=== PATIENT | male | born 1965 ===

== ENCOUNTER 2016-05-27 14:31 | Emergency (ER) | payer SELFPAY ==
[2016-05-27] MEDS ORDERED: Glucagon Recombinant 1 mg Inj ONE (14:57)
[2016-05-27] MEDS ORDERED: Glucagon Recombinant 1 mg Inj IM STA (15:00)
--- NOTE | 2016-05-27 15:19 | C.PDOC ---
History Of Present Illness 50M BIBA for psych eval. the pt states " I have schizophrenia" but he is unsure why he was brought here today. denies SI or HI. +aud hallucinations. Time Seen by Provider: 05/27/16 14:51 Chief Complaint (Nursing): Psychiatric Evaluation History Per: Patient History/Exam Limitations: no limitations Current Symptoms Are (Timing): Still Present Recent travel outside of the [place]: No Past Medical History Reviewed: Historical Data, Nursing Documentation, Vital Signs Vital Signs: Last Vital Signs Temp 98.6 F 05/27/16 14:45 Pulse 100 H 05/27/16 14:45 Resp 20 05/27/16 14:45 BP 169/110 H 05/27/16 14:45 Pulse Ox 97 05/27/16 16:44 - Medical History PMH: Anxiety, Depression - [facility] Procedures INDIVID PSYCHOTHERAP NEC (02/13/14) NEUROLEPTIC THERAPY (02/13/14) OTHER GROUP THERAPY (02/13/14) Family History: States: Unknown Family Hx - Social History Hx Alcohol Use: Yes (pt states sometimes) Hx Substance Use: No Review Of Systems Except As Marked, All Systems Reviewed And Found Negative. Constitutional: Negative for: Fever, Weakness Cardiovascular: Negative for: Chest Pain Respiratory: Negative for: Cough, Shortness of Breath Gastrointestinal: Negative for: Nausea, Vomiting, Abdominal Pain Genitourinary: Negative for: Dysuria Neurological: Negative for: Weakness, Numbness, Headache Psych: Positive for: Psychosis. Negative for: Suicidal ideation Physical Exam - Physical Exam Appears: Well, Non-toxic, No Acute Distress Skin: Warm, Dry Head: Atraumatic Eye(s): bilateral: PERRL, EOMI Oral Mucosa: Moist Lips: No Swelling Neck: Normal ROM Respiratory: No Decreased Breath Sounds, No Accessory Muscle Use, No Rales, No Rhonchi, No Wheezing Gastrointestinal/Abdominal: Soft, No Tenderness Pulses: Left Radial: Normal, Right Radial: Normal Neurological/Psych: Oriented x3, Other (no focal deficits) Gait: Steady ED Course And Treatment - Laboratory Results Result Diagrams: 05/27/16 16:00 05/27/16 16:00 ECG: Interpreted By Me, Viewed By Me ECG Rhythm: Sinus Rhythm Interpretation Of ECG: Nonspecific T wave abnormality, normal intervals, similar to prior 08/25/14 Rate From EC (BPM) O2 Sat by Pulse Oximetry: 97 (on room air) Pulse Ox Interpretation: Normal Medical Decision Making Medical Decision Makin psych service evaluated the pt and cleared him for discharge. Disposition - Disposition Disposition: HOME/ ROUTINE Disposition Time: 18:08 Condition: STABLE - Clinical Impression Clinical Impression: Schizoaffective disorder - Scribe Statement The provider has reviewed the documentation as recorded by the Arelis Martinez Provider Attestation: All medical record entries made by the Arelis were at my direction and personally dictated by me. I have reviewed the chart and agree that the record accurately reflects my personal performance of the history, physical exam, medical decision making, and the department course for this patient. I have also personally directed, reviewed, and agree with the discharge instructions and disposition.
[2016-05-27 16:06] LABS: BASO # 0.1 K/uL (0.0-0.2); BASO % 0.9 % (0.0-2.0); EOS % 0.3 % (0.0-4.0); HEMATOCRIT 47.9 % (35.0-51.0); LYMPH # 1.6 K/uL (1.0-4.3); LYMPH % 10.8 % (20.0-40.0); MEAN CELL VOLUME 88.2 fL (80.0-94.0); MEAN CORPUSCULAR HEMOGLOBIN 30.2 pg (27.0-31.0); MEAN CORPUSCULAR HGB CONC 34.2 g/dL (33.0-37.0); MEAN PLATELET VOLUME 8.1 fL (7.2-11.7); MONO % 6.7 % (0.0-10.0); NRBC % 0.2 % (0.0-2.0); RED CELL DISTRIBUTION WIDTH 12.9 % (11.5-14.5); WHITE BLOOD COUNT 14.5 K/uL (4.8-10.8)
[2016-05-27 16:17] LABS: CHLORIDE 92 mmol/L (98-107); SODIUM 133 mmol/L (132-148)
[2016-05-27 16:20] LABS: ALCOHOL SERUM < 10 mg/dl (0-10); BILIRUBIN,TOTAL 1.2 mg/dL (0.2-1.3); CARBON DIOXIDE 22 mmol/L (22-30); GFR AFRICAN-AMERICAN > 60
[2016-05-27 16:21] LABS: ALB/GLOB RATIO 1.3 (1.0-2.1); ALKALINE PHOSPHATASE 49 U/L (38-126); ALT/SGPT 29 U/L (21-72); AST/SGOT 59 U/L (17-59); BLOOD UREA NITROGEN 19 mg/dL (9-20); CALCIUM 9.9 mg/dl (8.6-10.4); GLUCOSE,RANDOM 146 mg/dL (75-110); TOTAL PROTEIN 8.7 g/dL (6.3-8.3)
[2016-05-27 17:26] LABS: RBC URINE 4 /hpf (0-3); URINE BACTERIA RARE (<OCC); URINE BILIRUBIN NEGATIVE (NEGATIVE); URINE COLOR Yellow (YELLOW); URINE GLUCOSE (UA) NORMAL (Normal); URINE KETONE 1+ mg/dL (NEGATIVE); URINE LEUKOCYTE ESTERASE NEG Leu/uL (Negative); URINE PROTEIN 2+ mg/dL (NEGATIVE); URINE UROBILINOGEN NORMAL mg/dL (0.2-1.0); WBC URINE 1 /hpf (0-5)
[2016-05-27 17:29] LABS: URINE BLOOD TRACE (NEGATIVE)
[2016-05-27 18:36] VITALS: BP 158/92; PULSE 92; RESP 18; TEMP 98.2; O2SAT 98
--- NOTE | 2016-05-28 12:14 | CARD ---
APPROVED REPORT EKG Measurement Heart [id number] <Conclusion> Normal sinus rhythm T wave abnormality, consider inferior ischemia T wave abnormality, consider anterolateral ischemia Abnormal ECG
== END 2016-05-27 18:36 | disposition home or self-care (01) ==
LOC: C.ER 14:31
DX: F25.9 Schizoaffective disorder, unspecified (principal)
CPT/HCPCS: 80053; 81001; 82948; 85025; 93005; 96372; 99285; G0480; J1610

== ENCOUNTER 2016-11-10 03:49 | Inpatient (IN) | payer OTHER ==
[2016-11-10 04:14] LABS: BASO # 0.1 K/uL (0.0-0.2); BASO % 0.8 % (0.0-2.0); EOS # 0.1 K/uL (0.0-0.7); EOS % 0.5 % (0.0-4.0); HEMATOCRIT 47.2 % (35.0-51.0); LYMPH # 1.6 K/uL (1.0-4.3); LYMPH % 15.3 % (20.0-40.0); MEAN CELL VOLUME 89.1 fL (80.0-94.0); MEAN CORPUSCULAR HEMOGLOBIN 31.5 pg (27.0-31.0); MEAN CORPUSCULAR HGB CONC 35.4 g/dL (33.0-37.0); MEAN PLATELET VOLUME 7.7 fL (7.2-11.7); MONO # 0.8 K/uL (0.0-0.8); MONO % 7.3 % (0.0-10.0); RED CELL DISTRIBUTION WIDTH 12.7 % (11.5-14.5); WHITE BLOOD COUNT 10.6 K/uL (4.8-10.8)
[2016-11-10 04:29] LABS: ALB/GLOB RATIO 1.2 (1.0-2.1); ALCOHOL SERUM < 10 mg/dl (0-10); ALKALINE PHOSPHATASE 63 U/L (38-126); ALT/SGPT 36 U/L (21-72); AST/SGOT 27 U/L (17-59); BLOOD UREA NITROGEN 19 mg/dL (9-20); CALCIUM 10.1 mg/dl (8.6-10.4); CARBON DIOXIDE 25 mmol/L (22-30); CHLORIDE 100 mmol/L (98-107); GFR AFRICAN-AMERICAN > 60; GLUCOSE,RANDOM 118 mg/dL (75-110); POTASSIUM 4.1 mmol/L (3.6-5.2); SODIUM 141 mmol/L (132-148); TOTAL PROTEIN 8.3 g/dL (6.3-8.3)
--- NOTE | 2016-11-10 04:35 | C.PDOC ---
History Of Present Illness 51 y/o male, hx of schizoaffective disorder, was brought in by EMS after being found wandering the streets naked and dazed [employer]. Patient is slow when responding to questions, but reports feeling tensed and stressed. Hx limited due to clinical condition. Patient has multiple prior visits. Denies homicidal ideation, suicidal ideation, or somatic complaints. Time Seen by Provider: 11/10/16 03:53 Chief Complaint (Nursing): Psychiatric Evaluation History Per: Patient History/Exam Limitations: clinical condition Onset/Duration Of Symptoms: Hrs Current Symptoms Are (Timing): Still Present Suicide/Self Injury Attempted (Context): None Severity: Mild Associated Symptoms: denies: Suicidal Thoughts, Suicidal Plan Recent travel outside of the [place]: No Additional History Per: Patient Past Medical History Reviewed: Historical Data, Nursing Documentation, Vital Signs Vital Signs: Last Vital Signs Temp 97.9 F 11/10/16 03:52 Pulse 74 11/10/16 03:52 Resp 20 11/10/16 03:52 BP 152/75 H 11/10/16 03:52 Pulse Ox 99 11/10/16 05:54 - Medical History PMH: Anxiety, Depression, Schizophrenia Denies: Diabetes, Hepatitis, HIV, HTN, Chronic Kidney Disease, Seizures, Sexually Transmitted Disease - [facility] Procedures INDIVID PSYCHOTHERAP NEC (02/13/14) NEUROLEPTIC THERAPY (02/13/14) OTHER GROUP THERAPY (02/13/14) Family History: States: Unknown Family Hx - Social History Hx Alcohol Use: Yes (pt states sometimes) Hx Substance Use: No - Immunization History Hx Tetanus Toxoid Vaccination: No Hx Influenza Vaccination: No Review Of Systems Review Of Systems: ROS cannot be obtained secondary to pt's inabilty to answer questions. Physical Exam - Physical Exam Appears: Non-toxic, No Acute Distress, Other (Bizzare affect. No trauma.) Skin: Warm, Dry, No Other (laceration or abrasions noted.) Head: Normacephalic Eye(s): bilateral: Normal Inspection, PERRL, EOMI Oral Mucosa: Moist Cardiovascular: Rhythm Regular Respiratory: Normal Breath Sounds, No Rales, No Rhonchi, No Wheezing Gastrointestinal/Abdominal: Normal Exam, Bowel Sounds, Soft, No Tenderness Extremity: Other (Dry blood on right fingers) Neurological/Psych: Other (Awake and alert) ED Course And Treatment - Laboratory Results Result Diagrams: 11/10/16 04:11 11/10/16 04:11 O2 Sat by Pulse Oximetry: 99 (RA) Pulse Ox Interpretation: Normal Progress Note: Plans: Blood work, UA, UDS ordered and reviewed. 5:54am- Patient medically cleared. Pending crisis. Disposition - Disposition Disposition Time: 07:00 Condition: STABLE Forms: [facility] (Brazilian) - Clinical Impression Clinical Impression: Schizoaffective disorder - Scribe Statement The provider has reviewed the documentation as recorded by the Scribe Maico blount All medical record entries made by the Scribe were at my direction and personally dictated by me. I have reviewed the chart and agree that the record accurately reflects my personal performance of the history, physical exam, medical decision making, and the department course for this patient. I have also personally directed, reviewed, and agree with the discharge instructions and disposition. Physician Patient Turnover Patient Signed Over To: Grayson Domínguez Handoff Comments: pending dispo by crisis/psych
[2016-11-10 05:38] LABS: RBC URINE 10 /hpf (0-3); URINE BILIRUBIN NEGATIVE (NEGATIVE); URINE BLOOD 1+ (NEGATIVE); URINE COLOR Amber (YELLOW); URINE GLUCOSE (UA) NORMAL (Normal); URINE KETONE TRACE mg/dL (NEGATIVE); URINE LEUKOCYTE ESTERASE NEG Leu/uL (Negative); URINE PROTEIN 1+ mg/dL (NEGATIVE); URINE UROBILINOGEN NORMAL mg/dL (0.2-1.0); WBC URINE 4 /hpf (0-5)
--- NOTE | 2016-11-10 08:24 | PCM.BM ---
<Eloise Mi - Last Filed: 11/10/16 11:34> Treatment Plan Problems - Problems identified on initial assessmt psychosis Date Initiated: 11/10/16 Time Initiated: 08:14 Assessment reference: NA Status: Active Treatment assets and liabiliti Patient Assests: ADL independent Patient Liabilities: other (med non compliance) - Milieu Protocol Maintain good personal hygiene: daily Encourage regular showers Maintain personal safety: every shift Educate patient to report safety concerns to staff, every shift Monitor environment for contraband/sharps Medication safety: Monitor for expected outcome, potential side effects: every shift, Assess barriers to learning: every shift, Assess readiness for medication education: every shift <Najma Vigil - Last Filed: 11/12/16 11:15> - Diagnosis (1) Schizoaffective disorder Status: Acute Interventions: 11/12/16 11:15 * Assess/adjust medications daily and /or as needed * See patient on an individual basis 7x/week to assess status of hallucinations * Discuss risks, benefits, side effects and alternatives of medications * <Lydia Alexandra - Last Filed: 11/14/16 11:26> Family Contact Family involvement: Family/SO is involved Family contact: Patient agrees to contact Family contact name: Joseph AlanizRaprnuvjjej-atafahn-au-law - Goals for Treatment Patient goals for treatment: "I want to keeop taking my medications." Discharge/Continuing Care - Education Needs Education Needs: Patient Medication, Patient Coping Skills - Discharge Discharge Criteria: Tolerates medication w/o severe side effects, Reduction of target symptoms Discharge to:: Home, With Family - Treatment Team Participation Discussed with Family/SO: Yes Was Patient/Family/SO present at Treatment Team Meeting: Yes
--- NOTE | 2016-11-11 00:03 | PCM.PSYCH ---
Initial Psychiatric Evaluation - Initial Psychiatric Evaluation Legal Status: Capacity Chief Complaint (in patient's own words): UNABLE TO OBTAIN Patient's Reaction to Hospitalization: UNABLE TO OBTAIN History of Present Illness and Precipitating Events: N.B. MUCH OF THE INFORMATION COMES FROM THE MEDICAL RECORDD PT IS 51 YEAR OLD MALE HELIVES WITH HIS BROTHER=IN-LAW.PT WAS BROUGHT INTO ED BY EMS. HE WAS FOUND NAKED WANDERING AROUND. HE WAS APPARENTLY CONFUSED. PT WAS VERY SLOW TO RESPOND TO QUESTIONS. HE DID NOT WANT TO HURT HIMSELF OR OTHERS.HE REFUSED TO SIGN CONSENTS . HOWEVER, NURSE ESPERANZA COAXED HIM TO SIGN A RELEASE SO STAFF COULD COMMUNICATE WITH [id number]. PATIENT ACCOUNT ANALYST CALLED ANF LEFT A MESSAGE. PT PER BHAVNA TAKES AT LEAST RISPERDAL.PT APPEARS PARANOID , RESPONDING TO INTERNAL STIMULI, PREOCCUPIED STARING INTO SPACE. HE TOOK OFF HIS GOWN IN THE HALLWAY AND HAD TO BE ESCORTED TO HIS ROOM. PT WAS AT THE DOOR REPEATED ASKING TO RING THE CASSIDY SO HE COULD LEAVE Current Medications: Active Medications Generic Name Dose Route Start Last Admin Trade Name Freq PRN Reason Stop Dose Admin Acetaminophen 650 mg 11/10/16 07:59 Tylenol 325mg Tab PO Q4H PRN Pain, moderate (4-7) Benztropine Mesylate 0.5 mg 11/10/16 10:00 11/10/16 17:45 Cogentin PO 0.5 mg BID CHERELLE Administration Lorazepam 1 mg 11/10/16 14:24 11/10/16 17:45 Ativan PO 11/13/16 14:25 1 mg TID PRN Administration Anxiety Risperidone 3 mg 11/10/16 10:00 11/10/16 17:45 Risperdal Tab PO 3 mg BID CHERELLE Administration Sertraline HCl 100 mg 11/10/16 10:00 11/10/16 10:34 Zoloft PO 100 mg DAILY CHERELLE Administration Trazodone HCl 50 mg 11/10/16 22:00 Desyrel PO HS PRN Insomnia Past Psychiatric History - Past Psychiatric History Prior Professional Help: UNABLE TO OBTAIN Pertinent Medical Hx (Current Medical&Sleep Prob, Allergies): Allergies Allergy/AdvReac Type Severity Reaction Status Date / Time Penicillins Allergy Verified 11/10/16 03:52 Risperidone [Risperdal M-TAB] 1 mg PO DAILY #30 odt 03/01/14 Risperidone [Risperdal M-TAB] 2 mg PO HS #30 odt 03/01/14 Review of Systems - Review of Systems Systems not reviewed;Unavailable: Uncooperative Review of Systems: REVIEW OF ALL SYPTOMS IS NOT POSSIBLE DUE TO PT'S CONDITION - Psychiatric Psychiatric: Behavioral Changes, Confusion Mental Status Examination - Personal Presentation Personal Presentation: Looks older than stated age - Affect Affect: Flat - Motor Activity Motor Activity: Psychomotor Retardation - Reliability in Providing Information Reliability in Providing Information: Poor, due to alteration in thoughts - Speech Speech: Disorganized - Mood Mood: Neutral - Formal Thought Process Additional comments: UNABLE TO OBTAIN - Hallucinations/Delusions Hallucinations: Other Delusions: Other Additional comments: UNABLE TO OBTAIN - Obsessions/Compulsions Description of Obsession/Compulsion: UNABLE TO ASCERTAIN - Cognitive Functions Orientation: Person, Place Attention/Concentration: Easily distracted Judgement: Imparied, as evidence by: Other Memory: Recent impaired, as evidenced by: Other, Remote intact, as evidenced by : Other - Risk Risk: Other - Strength & Assets Inventory Strength & Assets Inventory: Family support - Limitations Limitations: Decreased memory, recent DSM 5 DX - DSM 5 DSM 5 Diagnosis: SCHIZOAFFECTIVE DISORDER: RISPERDAL [facility], MILIEU AND RECRERATIONAL THERAPYU - Recommended/Plan of Treatment Treatment Recommendations and Plan of Treatment: SEE ABOVE Projected ELOS: 10 DAYS Prognosis: FAIR WITH TREATMENT Discharge Plan and Discharge Criteria: INCREASED AWARENESS OF SURROUNDINGS - Smoking Cessation Smoking Cessation Initiated: No
--- NOTE | 2016-11-11 10:38 | PCM.PYCHPN ---
Psychiatric Progress Note - Psychiatric Progress Note Patient seen today, length of contact: 16 min Patient Chief Complaint: I ma hearing voices Problems Identified/Issues Discussed: Patient seen and evaluated, chart reviewed and discussed with the nurse. As per the staff pt remained disorganized and internally preoccupied. He remained isolated and confined to his room. He appeared suspicious, paranoid and psychotic. He remained superficially cooperative and guarded about the details. However he remained calm and cooperative. He is taking medication and denies any side effects. He needs more time for stabilization. Supportive therapy and psychoeducation were given. Medication Change: Yes Medical Record Reviewed: Yes Mental Status Examination - Cognitive Function Orientation: Person, Place Memory: Intact Attention: Poor Concentration: Poor Association: Loose Fund of Knowledge: Poor - Mood Mood: Anxious - Affect Affect: Flat - Speech Speech: Soft - Formal Thought Process Formal Thought Process: Hallucinations, Delusions, Paranoia, Loosening of associations - Suicidal Ideation Suicidal Ideation: No - Homicidal Ideation Homicidal Ideation: No Goal/Treatment Plan - Goal/Treatment Plan Need for Continued Stay: Discharge may exacerbated symptoms, Severe functional impairment Progress Toward Problem(s) and Goals/Treatment Plan: Schizoaffective disorder bipolar type CBT Psychoeducation Supportive therapy, group therapy, individual therapy Reduce Risperdal 2 mg PO BID Zoloft 100 mg PO Q Daily Trazodone 50 mg by mouth daily at bedtime - Smoking Cessation Smoking Cessation Initiated: No
--- NOTE | 2016-11-12 11:16 | PCM.PYCHPN ---
Psychiatric Progress Note - Psychiatric Progress Note Patient seen today, length of contact: 16 min Patient Chief Complaint: I am feeling patrice.' Problems Identified/Issues Discussed: Patient seen and evaluated, chart reviewed and discussed with the nurse. Patient appeared very disorganized and internally preoccupied. He remained appeared suspicious, paranoid and psychotic. He remained superficially cooperative and guarded about the details. However he remained calm and cooperative and started taking medication and denies any side effects. He needs more time for stabilization. Supportive therapy and psychoeducation were given. Medication Change: Yes (increase Risperdal) Medical Record Reviewed: Yes Mental Status Examination - Cognitive Function Orientation: Person, Place, Situation, Time Memory: Intact Attention: Poor Concentration: Poor Association: Loose Fund of Knowledge: Poor - Mood Mood: Depressed, Anxious - Affect Affect: Constricted - Speech Speech: Soft - Formal Thought Process Formal Thought Process: Hallucinations, Delusions, Paranoia, Loosening of associations - Suicidal Ideation Suicidal Ideation: No - Homicidal Ideation Homicidal Ideation: No Goal/Treatment Plan - Goal/Treatment Plan Need for Continued Stay: Discharge may exacerbated symptoms, Severe functional impairment Progress Toward Problem(s) and Goals/Treatment Plan: Schizoaffective disorder bipolar type CBT Psychoeducation Supportive therapy, group therapy, individual therapy Risperdal 2 mg PO daily Increase Risperdal 3 mg PO HS Zoloft 100 mg PO Q Daily Trazodone 50 mg by mouth daily at bedtime - Smoking Cessation Smoking Cessation Initiated: No
--- NOTE | 2016-11-13 10:15 | PCM.PYCHPN ---
Psychiatric Progress Note - Psychiatric Progress Note Patient seen today, length of contact: 16 min Patient Chief Complaint: I am hearing voices Problems Identified/Issues Discussed: The patient was seen, chart reviewed, case discussed with staff. pt remained disorganized, disheveled and internally preoccupied. He si still isolated and withdrawn. He appears delusional, psychotic and paranoid. The patient is compliant with medications and reports no side effects. Symptoms are improving but patient needs more time to stabilize. After care discussed, support and psychoeducation given. Medication Change: Yes (increase Risperdal) Medical Record Reviewed: Yes Mental Status Examination - Cognitive Function Orientation: Person, Place, Situation, Time Memory: Intact Attention: WNL Concentration: Poor Association: Loose Fund of Knowledge: Poor - Mood Mood: Depressed, Anxious - Affect Affect: Constricted - Speech Speech: Soft - Formal Thought Process Formal Thought Process: Hallucinations, Delusions, Paranoia, Loosening of associations - Suicidal Ideation Suicidal Ideation: No - Homicidal Ideation Homicidal Ideation: No Goal/Treatment Plan - Goal/Treatment Plan Need for Continued Stay: Discharge may exacerbated symptoms, Severe functional impairment Progress Toward Problem(s) and Goals/Treatment Plan: Schizoaffective disorder bipolar type CBT Psychoeducation Supportive therapy, group therapy, individual therapy Risperdal 2 mg PO daily Risperdal 3 mg PO HS Zoloft 100 mg PO Q Daily Trazodone 50 mg by mouth daily at bedtime - Smoking Cessation Smoking Cessation Initiated: No
--- NOTE | 2016-11-14 15:01 | PCM.PYCHPN ---
Psychiatric Progress Note - Psychiatric Progress Note Patient seen today, length of contact: 16 min Patient Chief Complaint: "I'm feeling better" Problems Identified/Issues Discussed: The patient was seen, chart reviewed, case discussed with staff. The patient is compliant with medications and reports no side effects. Patient continues to appear disheveled and disorganized, and is slow to respond to questions. Patient states he is feeling better and slept well last night. He reports feeling anxious at present. Denies hopelessness or helplessness. He states that he has racing thoughts and hears voices that are cursing at him. Denies visual hallucinations. States that he sometimes feels like he is being watched. He does not feel like he is being followed. Denies suicidal or homicidal ideation. Symptoms are improving but patient needs more time to stabilize. After care discussed, support and psychoeducation given. Medication Change: No Medical Record Reviewed: Yes Mental Status Examination - Cognitive Function Orientation: Person, Place, Situation, Time Memory: Intact Attention: Poor Concentration: Poor Association: Loose Fund of Knowledge: Poor - Mood Mood: Depressed, Anxious - Affect Affect: Constricted - Speech Speech: Soft - Formal Thought Process Formal Thought Process: Hallucinations, Delusions, Paranoia, Loosening of associations - Suicidal Ideation Suicidal Ideation: No - Homicidal Ideation Homicidal Ideation: No Goal/Treatment Plan - Goal/Treatment Plan Need for Continued Stay: Discharge may exacerbated symptoms, Severe functional impairment Progress Toward Problem(s) and Goals/Treatment Plan: Schizoaffective disorder bipolar type CBT Psychoeducation Supportive therapy, group therapy, individual therapy Risperdal 2 mg PO daily Risperdal 3 mg PO HS Zoloft 100 mg PO Q Daily Trazodone 50 mg by mouth daily at bedtime - Smoking Cessation Smoking Cessation Initiated: No
--- NOTE | 2016-11-15 11:06 | PCM.PYCHPN ---
Psychiatric Progress Note - Psychiatric Progress Note Patient seen today, length of contact: 17 min Patient Chief Complaint: "I'm still hearing voices" Problems Identified/Issues Discussed: The pt is seen, chart reviewed, case discussed with staff. Support given, CBT and MS used briefly No new symptoms reported, improving slowly and needs more time Still very isolated and symptomatic, though. Not ready for d/c No SEs from medications, risks discussed. After care discussed Medication Change: No Medical Record Reviewed: Yes Mental Status Examination - Cognitive Function Orientation: Person, Place, Situation, Time Memory: Intact Attention: Poor Concentration: Poor Association: Loose Fund of Knowledge: Poor - Mood Mood: Depressed, Anxious - Affect Affect: Blunted - Speech Speech: Soft - Formal Thought Process Formal Thought Process: Hallucinations, Delusions, Paranoia - Suicidal Ideation Suicidal Ideation: No - Homicidal Ideation Homicidal Ideation: No Goal/Treatment Plan - Goal/Treatment Plan Need for Continued Stay: Discharge may exacerbated symptoms, Severe functional impairment Progress Toward Problem(s) and Goals/Treatment Plan: Continue medications Support and psychoeducation daily Attend groups and activities daily After care planning by EMELINA Estimated Date of D/C: 11/21/16
--- NOTE | 2016-11-17 08:49 | PCM.PYCHPN ---
Psychiatric Progress Note - Psychiatric Progress Note Patient seen today, length of contact: 16 min Patient Chief Complaint: " Problems Identified/Issues Discussed: The pt is seen, chart reviewed, case discussed with staff. The pt is compliant with medications and reports no side-effects. Symptoms are improving but needs more time to stabilize. After care discussed, support and psychoeducation given. No change since yesterday; isolated, sleeping very long hours, flat affect... He talks a bit more with others staff reported. Medication Change: No Medical Record Reviewed: Yes Mental Status Examination - Cognitive Function Orientation: Person, Place, Situation, Time Memory: Intact Attention: WNL Concentration: Poor Association: Loose Fund of Knowledge: Poor - Mood Mood: Depressed, Anxious - Affect Affect: Constricted - Speech Speech: Soft - Formal Thought Process Formal Thought Process: Hallucinations, Delusions, Paranoia, Loosening of associations - Suicidal Ideation Suicidal Ideation: No - Homicidal Ideation Homicidal Ideation: No Goal/Treatment Plan - Goal/Treatment Plan Need for Continued Stay: Discharge may exacerbated symptoms, Severe functional impairment Progress Toward Problem(s) and Goals/Treatment Plan: Continue medications but consider ECT or Clozapine Support and psychoeducation daily Attend groups and activities daily After care planning by EMELINA
--- NOTE | 2016-11-17 09:55 | PCM.PYCHPN ---
Psychiatric Progress Note - Psychiatric Progress Note Patient seen today, length of contact: 16 min Patient Chief Complaint: I am hearing voices Problems Identified/Issues Discussed: The patient was seen, chart reviewed, case discussed with staff. pt remained disorganized, disheveled and internally preoccupied. He si still isolated and withdrawn. He appears delusional, psychotic and paranoid. The patient is compliant with medications and reports no side effects. Symptoms are improving but patient needs more time to stabilize. After care discussed, support and psychoeducation given. Medication Change: No Medical Record Reviewed: Yes Mental Status Examination - Cognitive Function Orientation: Person, Place, Situation, Time Memory: Intact Attention: WNL Concentration: Poor Association: Loose Fund of Knowledge: Poor - Mood Mood: Depressed, Anxious - Affect Affect: Constricted - Speech Speech: Soft - Formal Thought Process Formal Thought Process: Hallucinations, Delusions, Paranoia, Loosening of associations - Suicidal Ideation Suicidal Ideation: No - Homicidal Ideation Homicidal Ideation: No Goal/Treatment Plan - Goal/Treatment Plan Need for Continued Stay: Discharge may exacerbated symptoms, Severe functional impairment Progress Toward Problem(s) and Goals/Treatment Plan: Schizoaffective disorder bipolar type CBT Psychoeducation Supportive therapy, group therapy, individual therapy Risperdal 2 mg PO daily Risperdal 3 mg PO HS Zoloft 100 mg PO Q Daily Trazodone 50 mg by mouth daily at bedtime
--- NOTE | 2016-11-18 10:03 | PCM.PYCHPN ---
Psychiatric Progress Note - Psychiatric Progress Note Patient seen today, length of contact: 16 min Patient Chief Complaint: I am hearing voices Problems Identified/Issues Discussed: The patient was seen, chart reviewed, case discussed with staff. As per the staff, pt stepped out of his room first time yesterday. However he still appears disorganized, disheveled and internally preoccupied. He remained isolated and withdrawn. He appears less delusional, and less paranoid. The patient is compliant with medications and reports no side effects. Symptoms are improving but patient needs more time to stabilize. After care discussed, support and psychoeducation given. Medication Change: Yes (Increase zoloft) Medical Record Reviewed: Yes Mental Status Examination - Cognitive Function Orientation: Person, Place, Situation, Time Memory: Intact Attention: WNL Concentration: Poor Association: Loose Fund of Knowledge: Poor - Mood Mood: Depressed, Anxious - Affect Affect: Constricted - Speech Speech: Soft - Formal Thought Process Formal Thought Process: Hallucinations, Delusions, Paranoia, Loosening of associations - Suicidal Ideation Suicidal Ideation: No - Homicidal Ideation Homicidal Ideation: No Goal/Treatment Plan - Goal/Treatment Plan Need for Continued Stay: Discharge may exacerbated symptoms, Severe functional impairment Progress Toward Problem(s) and Goals/Treatment Plan: Schizoaffective disorder bipolar type CBT Psychoeducation Supportive therapy, group therapy, individual therapy Risperdal 2 mg PO daily Risperdal 3 mg PO HS Zoloft 150 mg PO Q Daily Trazodone 50 mg by mouth daily at bedtime Estimated Date of D/C: 11/21/16 - Smoking Cessation Smoking Cessation Initiated: No
--- NOTE | 2016-11-19 11:21 | PCM.PYCHPN ---
Psychiatric Progress Note - Psychiatric Progress Note Patient seen today, length of contact: 16 min Patient Chief Complaint: I am hearing voices Problems Identified/Issues Discussed: The patient was seen, chart reviewed, case discussed with staff. As per the staff, pt appears more organized, and less internally preoccupied. He appears less delusional, and less paranoid but he remained isolated and withdrawn. The patient is compliant with medications and reports no side effects. Symptoms are improving but patient needs more time to stabilize. After care discussed, support and psychoeducation given. Medication Change: Yes (Increase zoloft) Medical Record Reviewed: Yes Mental Status Examination - Cognitive Function Orientation: Person, Place, Situation, Time Memory: Intact Attention: WNL Concentration: Poor Association: WNL Fund of Knowledge: Poor - Mood Mood: Depressed, Anxious - Affect Affect: Constricted - Speech Speech: Soft - Formal Thought Process Formal Thought Process: Hallucinations, Delusions, Loosening of associations - Suicidal Ideation Suicidal Ideation: No - Homicidal Ideation Homicidal Ideation: No Goal/Treatment Plan - Goal/Treatment Plan Need for Continued Stay: Discharge may exacerbated symptoms, Severe functional impairment Progress Toward Problem(s) and Goals/Treatment Plan: Schizoaffective disorder bipolar type CBT Psychoeducation Supportive therapy, group therapy, individual therapy Risperdal 2 mg PO daily Risperdal 3 mg PO HS Zoloft 150 mg PO Q Daily Trazodone 50 mg by mouth daily at bedtime Estimated Date of D/C: 11/21/16
--- NOTE | 2016-11-20 09:57 | PCM.PYCHPN ---
Psychiatric Progress Note - Psychiatric Progress Note Patient seen today, length of contact: 16 min Patient Chief Complaint: "Medications have been working." Problems Identified/Issues Discussed: Pt. was seen, chart reviewed, case discussed with staff. Pt. states that the medications have been somewhat helping. Pt. reports he is still having the same auditory hallucinations. Pt. denies suicidal and homicidal ideation. Pt. still appears disorganized and internally preoccupied. As per staff, the pt. has been walking around more often and being more active. The pt. is compliant with medications and reports no side effects. Symptoms are improving, but patient needs more time to stabilize. After care discussed, support and psychoeducation given. Pt. states he will be going home after discharge. Medication Change: Yes (Increase zoloft) Medical Record Reviewed: Yes Mental Status Examination - Cognitive Function Orientation: Person, Place, Situation, Time Memory: Intact Attention: WNL Concentration: Poor Association: Loose Fund of Knowledge: Poor - Mood Mood: Depressed, Anxious - Affect Affect: Constricted - Speech Speech: Soft - Formal Thought Process Formal Thought Process: Hallucinations, Delusions, Paranoia, Loosening of associations - Suicidal Ideation Suicidal Ideation: No - Homicidal Ideation Homicidal Ideation: No Goal/Treatment Plan - Goal/Treatment Plan Need for Continued Stay: Discharge may exacerbated symptoms, Severe functional impairment Progress Toward Problem(s) and Goals/Treatment Plan: Schizoaffective disorder bipolar type CBT Psychoeducation Supportive therapy, group therapy, individual therapy Risperdal 2 mg PO daily Risperdal 3 mg PO HS Zoloft 150 mg PO Q Daily Trazodone 50 mg by mouth daily at bedtime Estimated Date of D/C: 11/21/16
--- NOTE | 2016-11-21 09:46 | PCM.BM ---
<AdalbertoLydia Sargent - Last Filed: 11/21/16 09:46> Treatment Plan Problems - Problems identified on initial assessmt psychosis Date Initiated: 11/10/16 Time Initiated: 08:14 Assessment reference: NA Status: Active Treatment assets and liabiliti Patient Assests: ADL independent Patient Liabilities: other (med non compliance) - Milieu Protocol Maintain good personal hygiene: daily Encourage regular showers Maintain personal safety: every shift Educate patient to report safety concerns to staff, every shift Monitor environment for contraband/sharps Medication safety: Monitor for expected outcome, potential side effects: every shift, Assess barriers to learning: every shift, Assess readiness for medication education: every shift Milieu Narrative: Schizoaffective disorder bipolar type CBT Psychoeducation Supportive therapy, group therapy, individual therapy Risperdal 2 mg PO daily Risperdal 3 mg PO HS Zoloft 150 mg PO Q Daily Trazodone 50 mg by mouth daily at bedtime Family Contact Family involvement: Family/SO is involved Family contact: Patient agrees to contact Family contact name: Joseph AlanizLauqvwbnxdb-slzelud-ag-law - Goals for Treatment Patient goals for treatment: "I want to keeop taking my medications." Patient's family/SO goals for treatment: To have pt involved in outpatient treatment and take his medication. Discharge/Continuing Care - Education Needs Education Needs: Patient Medication, Patient Coping Skills - Discharge Discharge Criteria: Tolerates medication w/o severe side effects, Reduction of target symptoms Discharge to:: Home, With Family - Treatment Team Participation Patient/Family/SO Statement: Schizoaffective disorder bipolar type CBT Psychoeducation Supportive therapy, group therapy, individual therapy Risperdal 2 mg PO daily Risperdal 3 mg PO HS Zoloft 150 mg PO Q Daily Trazodone 50 mg by mouth daily at bedtime Discussed with Family/SO: Yes Was Patient/Family/SO present at Treatment Team Meeting: Yes Treatment Plan Review Patient participation: Yes Family/SO/Caregiver participation: Yes ("I agree with Eusebio going to partial care program.") - Problem psychosis Time Initiated: 08:14 <Najma Vigil - Last Filed: 11/21/16 10:56> - Diagnosis (1) Schizoaffective disorder Status: Acute Interventions: 11/21/16 10:56 * Assess/adjust medications daily and /or as needed * See patient on an individual basis 7x/week to assess status of hallucinations * Discuss risks, benefits, side effects and alternatives of medications *
--- NOTE | 2016-11-21 13:54 | PCM.PYCHPN ---
Psychiatric Progress Note - Psychiatric Progress Note Patient seen today, length of contact: 16 min Patient Chief Complaint: "I feel better than yesterday." Problems Identified/Issues Discussed: Pt. was seen, chart reviewed, case discussed with staff. Pt. reports he slept well through the night and the medications are helping him. However, pt. reports he is still having the same auditory hallucinations. Pt. denies suicidal and homicidal ideation. Pt. appears less disorganized and internally preoccupied, but reports to having racing thoughts "here and there." As per staff, the pt. has been eating more and participating in group activities. The pt. is compliant with medications and reports no side effects. Symptoms are improving, but patient needs more time to stabilize. After care discussed, support and psychoeducation given. Pt. states he will be going home after discharge. Medication Change: Yes (Increase zoloft) Medical Record Reviewed: Yes Mental Status Examination - Cognitive Function Orientation: Person, Place, Situation, Time Memory: Intact Attention: WNL Concentration: Poor Association: Loose Fund of Knowledge: Poor - Mood Mood: Depressed, Anxious - Affect Affect: Constricted - Speech Speech: Soft - Formal Thought Process Formal Thought Process: Hallucinations, Loosening of associations - Suicidal Ideation Suicidal Ideation: No - Homicidal Ideation Homicidal Ideation: No Goal/Treatment Plan - Goal/Treatment Plan Need for Continued Stay: Discharge may exacerbated symptoms, Severe functional impairment Progress Toward Problem(s) and Goals/Treatment Plan: Schizoaffective disorder bipolar type CBT Psychoeducation Supportive therapy, group therapy, individual therapy Risperdal 2 mg PO daily Risperdal 3 mg PO HS Zoloft 150 mg PO Q Daily Trazodone 50 mg by mouth daily at bedtime Estimated Date of D/C: 11/24/16
[2016-11-22 07:06] VITALS: O2SAT 97
--- NOTE | 2016-11-22 11:16 | PCM.PYCHPN ---
Psychiatric Progress Note - Psychiatric Progress Note Patient seen today, length of contact: 16 min Patient Chief Complaint: "I feel better than yesterday." Problems Identified/Issues Discussed: Pt. was seen, chart reviewed, case discussed with staff. Pt. appears more organized and less internally preoccupied. He reports improvement in the voices and denies suicidal and homicidal ideation. As per staff, the pt. has been eating more and participating in group activities. The pt. is compliant with medications and reports no side effects. Symptoms are improving, but patient needs more time to stabilize. After care discussed, support and psychoeducation given. Medication Change: Yes (Increase zoloft) Medical Record Reviewed: Yes Mental Status Examination - Cognitive Function Orientation: Person, Place, Situation, Time Memory: Intact Attention: WNL Concentration: WNL Association: WNL Fund of Knowledge: Poor - Mood Mood: Anxious - Affect Affect: Constricted - Speech Speech: Soft - Formal Thought Process Formal Thought Process: No Impairment - Suicidal Ideation Suicidal Ideation: No - Homicidal Ideation Homicidal Ideation: No Goal/Treatment Plan - Goal/Treatment Plan Need for Continued Stay: Discharge may exacerbated symptoms, Severe functional impairment Progress Toward Problem(s) and Goals/Treatment Plan: Schizoaffective disorder bipolar type CBT Psychoeducation Supportive therapy, group therapy, individual therapy Risperdal 2 mg PO daily Risperdal 4 mg PO HS Zoloft 200 mg PO Q Daily Trazodone 50 mg by mouth daily at bedtime Estimated Date of D/C: 11/24/16 - Smoking Cessation Smoking Cessation Initiated: No
--- NOTE | 2016-11-23 13:48 | PCM.PYCHPN ---
Psychiatric Progress Note - Psychiatric Progress Note Patient seen today, length of contact: 16 min Patient Chief Complaint: "I am feeling much better." Problems Identified/Issues Discussed: Pt. was seen, chart reviewed, case discussed with staff. Pt. appears more organized than before and denies any voices. He denies suicidal and homicidal ideation. The pt. is compliant with medications and reports no side effects. Symptoms are improving, but patient needs more time to stabilize. After care discussed, support and psychoeducation given. Medication Change: Yes (Increase zoloft) Medical Record Reviewed: Yes Mental Status Examination - Cognitive Function Orientation: Person, Place, Situation, Time Memory: Intact Attention: WNL Concentration: WNL Association: WNL Fund of Knowledge: WNL - Mood Mood: Anxious - Affect Affect: Constricted - Speech Speech: Soft - Formal Thought Process Formal Thought Process: No Impairment - Suicidal Ideation Suicidal Ideation: No - Homicidal Ideation Homicidal Ideation: No Goal/Treatment Plan - Goal/Treatment Plan Need for Continued Stay: Discharge may exacerbated symptoms, Severe functional impairment Progress Toward Problem(s) and Goals/Treatment Plan: Schizoaffective disorder bipolar type CBT Psychoeducation Supportive therapy, group therapy, individual therapy Risperdal 2 mg PO daily Risperdal 4 mg PO HS Zoloft 200 mg PO Q Daily Trazodone 50 mg by mouth daily at bedtime Estimated Date of D/C: 11/24/16 - Smoking Cessation Smoking Cessation Initiated: No
[2016-11-24 09:22] VITALS: BP 118/75; PULSE 65; RESP 16; TEMP 98
--- NOTE | 2016-11-24 10:24 | PCM.PYCHDC ---
Mental Status Examination - Mental Status Examination Orientation: Person, Place, Situation, Time Memory: Intact Mood: Neutral Affect: Constricted Speech: Soft Attention: WNL Concentration: WNL Association: WNL Fund of Knowledge: WNL Formal Thought Process: No Impairment Description of patient's judgement and insight: Good, fair Psychotic Thoughts and Behaviors: Denies any AVH Suicidal Ideation: No Current Homicidal Ideation?: No Discharge Summary - Discharge Note Reason for Hospitalization: Pt is 51 year old male, he lives with his [id number].pt was brought into ED by EMS. He was found naked wandering around. He was apparently confused. Pt was very slow to respond to questions. He did not want to hurt himself or others. He refused to sign consents . However, nurse Eloise coaxed him to sign a release so staff could communicate with [id number]. Pt per source takes at least risperdal. Pt appears paranoid, responding to internal stimuli, preoccupied staring into space. He took off his gown in the hallway and had to be escorted to his room. Pt was at the door repeated asking to ring the kendall so he could leave. Consultations:: List each consultation separately and include: 1. Reason for request. 2. Findings. 3. Follow-up Summary of Hospital Course include:: 1. Description of specific treatment plan utilized for patients during their course of treatmen. 2. Summarize the time- course for resolution of acute symptoms and/or regressed behaviors. 3. Describe issues identified and worked on during hospitalization. 4. Describe medication utilized. 5. Describe medical problems identified and treated. 6. Reassessment of suicide risk Summary of Hospital Course: During the course of his stay, patient (pt) started progressively improving and he no longer remained anxious and irritable/depressed, paranoid and psychotic. He started attending groups and meetings and started socializing. He denied any feelings of hopelessness, helplessness, and worthlessness, denied any problem with the sleep or appetite, denied suicidal ideation or homicidal ideation. Pt denied any auditory or visual hallucinations. Patient remained calm and cooperative and remained compliant with the medications. Patient tolerated the medications very well and denied any side effects. - Diagnosis (1) Schizoaffective disorder Status: Acute - Final Diagnosis (DSM 5) Condition upon Discharge: STABLE DSM 5: Schizoaffective disorder bipolar type Disposition: HOME/ ROUTINE Follow-up Treatment Plan: Follow-up Treatment Plan: Education: Pt was educated and counseled about the risks and benefits of taking and not taking medications. Pt was educated and counseled about the risks of drinking and abusing drugs. Pt was educated and counseled to go to the ER or call 911 if pt develop suicidal ideation or homicidal ideation, worsening of symptoms or severe side effects of the meds. Prescriptions/Medication Reconciliation: Benztropine [Cogentin] 1 mg PO BID #60 tab risperiDONE [RisperDAL Tab] 1 mg PO DAILY #30 tab risperiDONE [RisperDAL Tab] 4 mg PO HS #30 tab Sertraline [Zoloft] 100 mg PO DAILY #60 tab traZODone [Desyrel] 50 mg PO HS PRN #30 tab PRN Reason: Insomnia - Smoking Cessation Smoking Cessation Medication prescribed: No - Antipsychotic Medications Pt discharged on 2 or more routine antipsychotic medications: No
== END 2016-11-24 11:45 | disposition home or self-care (01) | DRG 430 ==
LOC: C.ER 03:49 → C.9E 07:34 → C.5E 07:44
PROVIDERS: ADMIT Psychiatry & Neurology Psychiatry; ATTEND Psychiatry & Neurology Psychiatry
PROC: GZ3ZZZZ Medication Management (ICD-10-PCS; principal; 2016-11-10)
PROC: GZHZZZZ Group Psychotherapy (ICD-10-PCS; 2016-11-10)
PROC: GZ56ZZZ Individual Psychotherapy, Supportive (ICD-10-PCS; 2016-11-10)
DX: F25.0 Schizoaffective disorder, bipolar type (principal)